=== PATIENT | male | born 1990 | race Caucasian/White ===

== ENCOUNTER 2020-01-09 12:18 | Emergency (ER) | payer OTHER, SELFPAY ==
[2020-01-09 12:27] VITALS: BP 152/84; PULSE 88; RESP 16; TEMP 36.7; O2SAT 98
--- NOTE | 2020-01-09 12:34 | DI.RAD.S_ITS ---
PROCEDURE: XR RIBS LT MIN 3V W CXR1V INDICATIONS: R floating rib pain TECHNIQUE: 3 views of the left ribs were acquired, along with a single view chest. COMPARISON: None. FINDINGS: Surgical changes and devices: None. Bones and chest wall: A marker is placed upon the area of clinical concern. Within this region, no displaced rib fracture or other significant rib abnormality can be seen. No rib fractures are seen elsewhere. No suspicious bony lesions. Overlying soft tissues appear unremarkable. Lungs and pleura: No pleural effusions or pneumothorax. Lungs appear clear. Mediastinum: Mediastinal contours appear normal. Heart size is normal. IMPRESSION: Negative study, without a focal rib abnormality seen. Dictated by: Dheeraj Rossi M.D. on 01/09/2020 at 12:02 Approved by: Dheeraj Rossi M.D. on 01/09/2020 at 12:04
--- NOTE | 2020-01-09 12:36 | ED.BACK ---
HPI - Back Pain/Injury <KRISTEN Joshua - Last Filed: 01/09/20 13:46> General Chief Complaint: Back Pain/Injury Stated Complaint: severe left kidney pain today Time Seen by Provider: 01/09/20 12:21 Source: patient History of Present Illness HPI Narrative: 29yo male healthy male presents emergency department complaining of left mid back pain for the past few days. He states he usually has chronic low back pain during activity, however he noticed mid back pain that started few days ago. He states he was trimming hedges and contributed the pain to that as it was bilaterally initially. However, today he went for walk and noticed increasing pain particularly on the left side. He states it feels like ?my ribs broken ?. He states the pain is a dull aching with intermittent sharp stabbing pain that ranges from a 4/10-8/10. Pain is worse with movement and palpation of that area. He denies any fevers, shortness of breath, chills, nausea, vomiting, diarrhea, dysuria, abdominal pain, or any other concerns. He denies any history of kidney stones, denies flank pain. Patient denies any trauma to the area. Patient reported he did take Tylenol this morning. Related Data Previous Rx's Medication Instructions Recorded ondansetron [Zofran ODT] 4 mg SUBLINGUAL Q6HP PRN #5 odt 11/13/16 pantoprazole 40 mg PO QDAY #30 tab 11/13/16 cyclobenzaprine 10 mg PO TID PRN #20 tab 01/09/20 Allergies Allergy/AdvReac Type Severity Reaction Status Date / Time cat dander [CAT DANDER] Allergy Intermediate Itchy, Unverified 01/08/18 12:53 watery eyes and sneezing Review of Systems <KRISTEN Joshua - Last Filed: 01/09/20 13:46> Review of Systems Narrative: REVIEW OF SYSTEMS: GENERAL: Denies fever or chills. HENT: No head trauma. EYES: No vision changes. CARDIOVASCULAR: No chest pain or syncope. RESPIRATORY: No shortness of breath or cough. GASTROINTESTINAL: No nausea, vomiting, diarrhea, or constipation. GENITOURINARY: No flank pain. MUSCULOSKELETAL: Complains of left lower rib/back pain, see HPI. INTEGUMENTARY: No rash, lesions, or pruritus. NEURO: No numbness, tingling. Patient History <KRISTEN Joshua - Last Filed: 01/09/20 13:46> Medical History No significant medical problems (Acute) Social History Smoking Status: Never smoker Smoking Status: Never smoker alcohol intake frequency: a few times a month Substance Use Type: marijuana Exam <KRISTEN Joshua - Last Filed: 01/09/20 13:46> Initial Vital Signs Initial Vital Signs: Vital Signs Temperature 98.0 F 01/09/20 12:27 Pulse Rate 88 01/09/20 12:27 Respiratory Rate 16 01/09/20 12:27 Blood Pressure 152/84 H 01/09/20 12:27 Pulse Oximetry 98 01/09/20 12:27 PHYSICAL EXAMINATION: GENERAL: Well groomed, alert, and cooperative. Answers questions promptly and appropriately. Vital signs noted. HENT: Normocephalic, atraumatic. EYES: Symmetrical, sclera white, no periorbital swelling. CARDIOVASCULAR: S1 and S2 sounds normal. Regular rate and rhythm, no murmurs, clicks, or bruits. No pedal edema. RESPIRATORY: Normal respiratory rate, trachea midline, airway patent. No stridor, nasal flaring or accessory muscle use. Lungs are clear in all beltran. MUSCULOSKELETAL: Tenderness to left lower floating ribs with palpation of the anterior aspect. Increased pain with twisting from waist, and from lying to sitting. No spinal tenderness, no posterior rib tenderness. Normal gait and coordination. Equal tone and mass bilaterally. No ecchymosis, rash, or bruising. Equal metal fabrication supervisor strength bilaterally. ABD: Abdomen soft and nontender, no masses. : No CVA tenderness. EXTREMITIES: CMS intact. SKIN: Warm, dry, soft, appropriate color for ethnicity. No lesions, rashes, or wounds to visible area NEURO: Alert and Oriented X 3. No sensory deficits. PSYCH: Appropriate affect and mood. <Leelee Rodríguez MD - Last Filed: 01/09/20 14:14> Initial Vital Signs Initial Vital Signs: Vital Signs Temperature 98.0 F 01/09/20 12:27 Pulse Rate 88 01/09/20 12:27 Respiratory Rate 16 01/09/20 12:27 Blood Pressure 152/84 H 01/09/20 12:27 Pulse Oximetry 98 01/09/20 12:27 Course <KRISTEN Joshua - Last Filed: 01/09/20 13:46> Course Course Narrative: Patient was given Toradol in the emergency department to help with pain, this slightly improved pain. Orders Ordered: ED Orders 01/09/20 12:34 XR ribs LT min 3V w CXR1V Stat Discontinued Medications Ketorolac Tromethamine (Toradol) 30 mg IM NOW ONE Stop: 01/09/20 12:35 Last Admin: 01/09/20 12:38 Dose: 30 mg Documented by: PRIMITIVO Vital Signs Vital signs: Vital Signs - 8 hr 01/09/20 12:27 Temperature 98.0 F Pulse Rate 88 Respiratory Rate 16 Blood Pressure 152/84 H Pulse Oximetry 98 <Leelee Rodríguez MD - Last Filed: 01/09/20 14:14> Orders Ordered: ED Orders 01/09/20 12:34 XR ribs LT min 3V w CXR1V Stat Discontinued Medications Ketorolac Tromethamine (Toradol) 30 mg IM NOW ONE Stop: 01/09/20 12:35 Last Admin: 01/09/20 12:38 Dose: 30 mg Documented by: PRIMITIVO Vital Signs Vital signs: Vital Signs - 8 hr 01/09/20 12:27 Temperature 98.0 F Pulse Rate 88 Respiratory Rate 16 Blood Pressure 152/84 H Pulse Oximetry 98 MDM - Back Pain/Injury <KRISTEN Joshua - Last Filed: 01/09/20 13:46> Medical Records Attestation: I reviewed the patient's medical records. Lab Data Attestation: I reviewed the patient's lab results. Labs: Urine Dip Bedside Urine Glucose Negative Bedside Urine Bilirubin - Negative Bedside Urine Ketone - Negative Urine Specific [place] 1.025 Bedside Urine Occult Blood - Negative Bedside Urine pH 6.0 Bedside Urine Protein +/- 15 Bedside Urine Urobilinogen - Negative Bedside Urine Nitrite - Negative Bedside Urine Leukocytes - Negative Esterase Imaging Data Chest x-ray: Radiologist's Impression: [address] [address] XRay Report Signed Patient: Yehuda Chau FMR#: [id number] : 1990Acct:[id number] Age/Sex: 29 / MDate of Service: 01/09/20 Loc: ED Accession Number: [id number] Procedure: XR ribs LT min 3V w CXR1V Ordering Provider: Ariella Springer PROCEDURE: XR RIBS LT MIN 3V W CXR1V INDICATIONS: R floating rib pain TECHNIQUE: 3 views of the left ribs were acquired, along with a single view chest. COMPARISON: None. FINDINGS: Surgical changes and devices: None. Bones and chest wall: A marker is placed upon the area of clinical concern. Within this region, no displaced rib fracture or other significant rib abnormality can be seen. No rib fractures are seen elsewhere. No suspicious bony lesions. Overlying soft tissues appear unremarkable. Lungs and pleura: No pleural effusions or pneumothorax. Lungs appear clear. Mediastinum: Mediastinal contours appear normal. Heart size is normal. IMPRESSION: Negative study, without a focal rib abnormality seen. Dictated by: Dheeraj Rossi M.D. on 01/09/2020 at 12:02 Approved by: Dheeraj Rossi M.D. on 01/09/2020 at 12:04 [facility] Narrative Medical decision making narrative: A healthy 29-year-old male presents emergency department complaining of left-sided thoracic back pain after using the hedge trimmers, pain is worse with palpation and movement. Suspect patient's pain is most likely caused by a muscle spasm versus muscle strain due to reports of recent increase in activity such as head trimming, worsening pain with palpation and movement, no abdominal or flank tenderness, and negative x-ray. Less likely fracture due to negative x-ray and lack of trauma. Less likely renal calculi due to lack of CVA tenderness, urine without leukocytes or blood. Less likely infectious etiology due to lack of systemic symptoms such as fever, tachycardia, diarrhea, or vomiting. Less likely pancreatitis due to lack of abdominal pain or other symptoms such as nausea or vomiting. Patient was prescribed a muscle relaxer, he was encouraged to take ibuprofen for pain inflammation. He was given very strict return precautions for new or worsening symptoms. Patient agrees to plan of care verbalized his understanding. <Leelee Rodríguez MD - Last Filed: 01/09/20 14:14> Lab Data Labs: Urine Dip Bedside Urine Glucose Negative Bedside Urine Bilirubin - Negative Bedside Urine Ketone - Negative Urine Specific [place] 1.025 Bedside Urine Occult Blood - Negative Bedside Urine pH 6.0 Bedside Urine Protein +/- 15 Bedside Urine Urobilinogen - Negative Bedside Urine Nitrite - Negative Bedside Urine Leukocytes - Negative Esterase Discharge Plan Departure Patient Disposition: Home Clinical Impression: Rib pain Back pain, thoracic Qualifiers: Chronicity: acute Back pain laterality: left Qualified Code(s): M54.6 - Pain in thoracic spine Discharge Date/Time: 01/09/20 13:39 Instructions: DI for Back Spasm Activity Restrictions/Additional Instructions: Thank you for entrusting me with your care today. As discussed, your x-ray is negative for any fractures. It appears that your pain is most likely caused by a muscle strain and surrounding inflammation. I recommend taking 400-600 mg of ibuprofen every 6 hours for the next 3 days, this will help decrease inflammation. Additionally, I prescribed you a muscle relaxer. This will make you sleepy, do not drive while taking this medication. Please perform gentle stretches and massages, you may use ice and heat to help with pain. Follow up with your primary care provider in the next week if symptoms continue. Return to the emergency department for any new or worsening symptoms such as significant worsening of pain and, uncontrollable vomiting, high fevers, abdominal pain, chest pain, shortness of breath, or any other concerns. Prescriptions: New cyclobenzaprine 10 mg tablet 10 mg PO TID PRN (Reason: muscle spasm) Qty: 20 RF: 0 No Action pantoprazole 40 MG tablet,delayed release (DR/EC) 40 mg PO QDAY Qty: 30 RF: 0 ondansetron [Zofran ODT] 4 MG tablet,disintegrating 4 mg Sublingual Q6HP PRNQty: 5 RF: 0 <Leelee Rodríguez MD - Last Filed: 01/09/20 14:14> Cosign ED Attending Cosignature Attestation: I was immediately available in the department for consultation throughout this patient's visit. I agree with documentation as above. Leelee Rodríguez MD
[2020-01-09] MEDS: KETOROLAC 60 MG/2 ML VIAL 30 MG IM (12:38)
== END 2020-01-09 13:39 | disposition home or self-care (01) ==
PROVIDERS: Emergency Provider Nurse Practitioner
DX: M54.6 Pain in thoracic spine (principal); R07.81 Pleurodynia
CPT/HCPCS: 71101; 81003; 96372; 99283; J1885

== ENCOUNTER 2025-04-20 05:31 | Emergency (ER) | payer OTHER, SELFPAY ==
[2025-04-20] VITALS (13 sets, daily range): BP systolic 150–178; BP diastolic 96–107; PULSE 68–96; RESP 10–27; TEMP 36.1; O2SAT 94–100; BMI 29.0
--- NOTE | 2025-04-20 05:33 | DI.CT.S_ITS ---
PROCEDURE: CT ABDOMEN PELVIS W CON INDICATIONS: abd /n/v hx pancreatitis TECHNIQUE: After the administration of intravenous contrast, axial sections acquired from the lung bases to the pubic symphysis. Coronal and sagittal reformats were performed. For radiation dose reduction, the following was used: automated exposure control, adjustment of mA and/or kV according to patient size. COMPARISON: [facility], CT, ABDOMEN/PELVIS WITH CONTRAST, 11/13/2016, 5:15. FINDINGS: Image quality: Diagnostic. Lower Chest: No significant findings. ABDOMEN: Liver: No solid mass. Gallbladder: No radiopaque gallstones or wall thickening. Biliary ducts: No biliary dilation. Pancreas: No ductal dilation. Spleen: Size is within normal limits. Adrenal Glands: No adrenal nodules. Kidneys and Ureters: No hydronephrosis. No solid mass. No complex renal cystic lesion which requires follow up. Stomach and Bowel: Normal colonic caliber, without significant wall thickening. The appendix is visualized and normal. Peritoneum: No abnormal intraperitoneal fluid. No free air. Ventral Wall: No significant ventral hernia. Abdominal Nodes: No retroperitoneal or mesenteric adenopathy by size criteria. Vessels: Aorta and inferior vena cava are normal in size. PELVIS: Pelvic Organs: Unremarkable. Bladder: No bladder wall thickening, accounting for underdistention. Pelvic Nodes: No enlarged lymph nodes. Miscellaneous: No inguinal hernias are seen. Bones: No aggressive osseous abnormality. IMPRESSION: No significant or acute findings of the abdomen or pelvis. Specifically, there is no evidence of acute pancreatitis. Dictated by: Callie Webb M.D. on 04/20/2025 at 8:28 Approved by: Callie Webb M.D. on 04/20/2025 at 8:31
--- NOTE | 2025-04-20 05:34 | ED.ABDPAIN ---
HPI - Abdominal Pain <Abad Watson, - Last Filed: 04/20/25 07:06> General Chief Complaint: Abdominal Pain Stated Complaint: pancreatitis, in hospital last week, pain Time Seen by Provider: 04/20/25 05:32 History of Present Illness HPI narrative: Patient is a 34-year-old male with a past medical history of alcoholic induced pancreatitis, comes into the ED from home for evaluation of nausea and vomiting abdominal pain, states that he was recently in the hospital last week for pancreatitis, states that he was in [place] when this happened, states that he was told that he had an intussusception that did not require any intervention and was discharged home with a referral to GI. States that he has not reached out/set an appointment with GI yet, states that her symptoms are the same as when he was in the hospital states that symptoms started proximally 4 hours ago, states that he did try taking some Zofran at home but did not help his symptoms therefore decided come into the ED for further evaluation treatment. States that he did have 1 beer last night otherwise denies any other recreational drugs. Denies any other symptoms such as headache visual disturbance chest pain shortness breath fever chills or any other GI/ symptoms time. Related Data Previous Rx's ?Medication ?Instructions ?Recorded ondansetron 4 mg disintegrating 4 mg sublingual Q6HP PRN ##5 11/13/16 tablet (Zofran ODT) pantoprazole 40 mg tablet,delayed 40 mg PO QDAY #30 tabs 11/13/16 release cyclobenzaprine 10 mg tablet 10 mg PO TID PRN muscle spasm #20 01/09/20 tabs Allergies Allergy/AdvReac Type Severity Reaction Status Date / Time cat dander (CAT DANDER) Allergy Intermediate Itchy, Unverified 04/20/25 05:59 watery eyes and sneezing Review of Systems <Abad Watson, - Last Filed: 04/20/25 07:06> Review of Systems Narrative: General: Denies fever, chills, weight loss HEENT: Denies headache, eye drainage, eye irritation, head trauma, sore throat, voice change Cardiovascular: Denies any chest pain, palpitations, tachycardia Respiratory: Denies any shortness of breath, cough, wheeze, stridor GI/: Positive abdominal pain, nausea, vomiting, diarrhea, denies bright red blood per rectum, melanotic stools, urinary frequency, urinary retention, dysuria, hematuria MSK: Denies any joint pain, muscle pains, swelling Skin: Denies any rashes, lesions, discoloration Neuro: Denies any headache, lightheadedness, dizziness, fainting, weakness Psych: Denies SI/HI Patient History <Abad Watson DO - Last Filed: 04/20/25 07:06> Medical History (Updated 04/20/25 @ 10:09 by Sacha Webber MD) No significant medical problems Social History Smoking Status: Never smoker alcohol intake frequency: a few times a month Exam <Abad Watson DO - Last Filed: 04/20/25 07:06> Narrative Exam Narrative: General: Cooperative, well-developed, not in acute distress HEENT: Normocephalic, atraumatic, PERRLA, normal sclera, eyelids normal Neck: Active full range of motion, atraumatic Chest: Normal to inspection, negative crepitus, no overlying erythema ecchymosis Respiratory: Normal respiratory effort, not in acute respiratory distress, clear to auscultation bilaterally negative cough, wheeze, tachypnea, rhonchi, rales Cardiology: Regular rate rhythm negative gallop, murmur, rubs GI/: Patient has dry heaving on exam. No tenderness to palpation, soft, non rigid, normal to inspection, exam deferred MSK: Full active range of motion in all 4 extremities, atraumatic, no tenderness to palpation of any bony prominences Skin: No rashes or lesions noted Neuro: Alert awake oriented x3, moves all 4 extremities spontaneously, cranial nerves intact, able to answer all questions appropriately follows commands appropriately Psych: Cooperative, negative suicidal or homicidal ideations Initial Vital Signs Initial Vital Signs: Vital Signs Temperature 97 F L 04/20/25 05:49 Pulse Rate 82 04/20/25 05:49 Respiratory Rate 18 04/20/25 05:49 Blood Pressure 178/107 H 04/20/25 05:49 Pulse Oximetry 98 04/20/25 05:49 Oxygen Delivery Method Room Air 04/20/25 05:49 <Sacha Webber MD - Last Filed: 04/20/25 19:01> Initial Vital Signs Initial Vital Signs: Vital Signs Temperature 97 F L 04/20/25 05:49 Pulse Rate 82 04/20/25 05:49 Respiratory Rate 18 04/20/25 05:49 Blood Pressure 178/107 H 04/20/25 05:49 Pulse Oximetry 98 04/20/25 05:49 Oxygen Delivery Method Room Air 04/20/25 05:49 Course <Abad Watson DO - Last Filed: 04/20/25 07:06> Orders Ordered: Discontinued Medications Haloperidol (Haloperidol 5 Mg/Ml Vial) 5 mg IV NOW ONE Stop: 04/20/25 06:20 Last Admin: 04/20/25 06:22 Dose: 5 mg Documented By: WILLARD Hydromorphone HCl (Hydromorphone 1 Mg Inj) 1 mg IV NOW ONE Stop: 04/20/25 05:46 Last Admin: 04/20/25 05:50 Dose: 1 mg Documented By: WILLARD Sodium Chloride (Normal Saline 0.9%) 1,000 mls @ 1,000 mls/hr IV BOLUS ONE Stop: 04/20/25 06:31 Last Infusion: 04/20/25 06:42 Dose: Infused Documented By: Admin: 04/20/25 05:50 Dose: 1,000 mls/hr Documented By: WILLARD Morphine Sulfate (Morphine 4 Mg/Ml Inj) 4 mg IV NOW ONE Stop: 04/20/25 05:33 Last Admin: 04/20/25 05:58 Dose: Not Given Documented By: KIKE Ondansetron HCl (Ondansetron 4 Mg/2 Ml Inj) 4 mg IV NOW ONE Stop: 04/20/25 05:33 Last Admin: 04/20/25 05:50 Dose: 4 mg Documented By: WILLARD Vital Signs Vital signs: Vital Signs - 8 hr 04/20/25 05:49 04/20/25 05:58 04/20/25 06:00 Temperature 97 F L Pulse Rate 82 73 68 Respiratory Rate 18 10 L Blood Pressure 178/107 H Pulse Oximetry 98 96 98 Oxygen Delivery Method Room Air 04/20/25 06:00 04/20/25 06:30 04/20/25 07:00 Temperature Pulse Rate 75 68 Respiratory Rate 12 12 Blood Pressure 161/107 H Pulse Oximetry 100 Oxygen Delivery Method 04/20/25 07:02 04/20/25 07:02 04/20/25 07:30 Temperature Pulse Rate 69 72 Respiratory Rate 17 17 Blood Pressure 161/100 H Pulse Oximetry 94 99 Oxygen Delivery Method 04/20/25 07:30 04/20/25 08:00 04/20/25 08:00 Temperature Pulse Rate 77 Respiratory Rate 16 Blood Pressure 150/107 H 168/101 H Pulse Oximetry 98 Oxygen Delivery Method 04/20/25 08:30 04/20/25 08:30 Temperature Pulse Rate 75 Respiratory Rate 19 Blood Pressure 162/100 H Pulse Oximetry 98 Oxygen Delivery Method <Sacha Webber MD - Last Filed: 04/20/25 19:01> Orders Ordered: Discontinued Medications Haloperidol (Haloperidol 5 Mg/Ml Vial) 5 mg IV NOW ONE Stop: 04/20/25 06:20 Last Admin: 04/20/25 06:22 Dose: 5 mg Documented By: WILLARD Hydromorphone HCl (Hydromorphone 1 Mg Inj) 1 mg IV NOW ONE Stop: 04/20/25 05:46 Last Admin: 04/20/25 05:50 Dose: 1 mg Documented By: WILLARD Sodium Chloride (Normal Saline 0.9%) 1,000 mls @ 1,000 mls/hr IV BOLUS ONE Stop: 04/20/25 06:31 Last Infusion: 04/20/25 06:42 Dose: Infused Documented By: Admin: 04/20/25 05:50 Dose: 1,000 mls/hr Documented By: WILLARD Morphine Sulfate (Morphine 4 Mg/Ml Inj) 4 mg IV NOW ONE Stop: 04/20/25 05:33 Last Admin: 04/20/25 05:58 Dose: Not Given Documented By: KIKE Ondansetron HCl (Ondansetron 4 Mg/2 Ml Inj) 4 mg IV NOW ONE Stop: 04/20/25 05:33 Last Admin: 04/20/25 05:50 Dose: 4 mg Documented By: WILLARD Vital Signs Vital signs: Vital Signs - 8 hr 04/20/25 05:49 04/20/25 05:58 04/20/25 06:00 Temperature 97 F L Pulse Rate 82 73 68 Respiratory Rate 18 10 L Blood Pressure 178/107 H Pulse Oximetry 98 96 98 Oxygen Delivery Method Room Air 04/20/25 06:00 04/20/25 06:30 04/20/25 07:00 Temperature Pulse Rate 75 68 Respiratory Rate 12 12 Blood Pressure 161/107 H Pulse Oximetry 100 Oxygen Delivery Method 04/20/25 07:02 04/20/25 07:02 04/20/25 07:30 Temperature Pulse Rate 69 72 Respiratory Rate 17 17 Blood Pressure 161/100 H Pulse Oximetry 94 99 Oxygen Delivery Method 04/20/25 07:30 04/20/25 08:00 04/20/25 08:00 Temperature Pulse Rate 77 Respiratory Rate 16 Blood Pressure 150/107 H 168/101 H Pulse Oximetry 98 Oxygen Delivery Method 04/20/25 08:30 04/20/25 08:30 Temperature Pulse Rate 75 Respiratory Rate 19 Blood Pressure 162/100 H Pulse Oximetry 98 Oxygen Delivery Method MDM - Abdominal Pain <Abad Watson DO - Last Filed: 04/20/25 07:06> Differential Diagnosis Differential diagnosis: Likely abdominal pain, acute appendicitis, constipation, diverticulitis, gastroenteritis, pancreatitis, small bowel obstruction and other (Urinary tract infection, electrolyte abnormality,) Lab Data 04/20/25 05:45 04/20/25 05:45 Labs: Lab Results 04/20/25 04/20/25 04/20/25 Range/Units 05:45 08:49 08:49 WBC 12.1 H (4.5-11.0) X10^3/uL RBC 5.18 (4.5-5.9) X10^6/uL Hgb 15.6 (13.5-17.5) g/dL Hct 44.8 (41-53) % MCV 86.5 (80-100) fL MCH 30.2 (26-34) PG MCHC 34.9 (30-36) % RDW 14.0 (11.6-14.8) % Plt Count 279 (150-400) X10^3/uL Neut % (Auto) 67.0 (50-75) % Lymph % (Auto) 23.3 L (25-40) % [place] % (Auto) 8.8 (3-14) % Eos % (Auto) 0.5 L (2-4) % Baso % (Auto) 0.4 (0-2) % Neut # (Auto) 8100 H (6952-7116) /uL Lymph # (Auto) 2800 (6098-4987) /uL [place] # (Auto) 1100 H (0-900) /uL Eos # (Auto) 100 (0-450) /uL Baso # (Auto) 0 (0-100) /uL Sodium 137 (137-145) mmol/L Potassium 4.3 (3.4-5.1) mmol/L Chloride 103 (98-107) mmol/L Carbon Dioxide 25 (22-32) mmol/L BUN 24 H (9-20) mg/dL Creatinine 1.07 (0.66-1.25) mg/dL Estimated GFR > 60 (>60) mL/min BUN/Creatinine Ratio 22.4 H (6-22) Glucose 100 H (70-99) mg/dL Lactate 1.2 (0.7-2.1) mmol/L Calcium 9.8 (8.4-10.2) mg/dL Magnesium 2.2 (1.6-2.3) mg/dL Total Bilirubin 0.6 (0.2-1.3) mg/dL AST 40 (17-59) IU/L ALT 32 (<50) IU/L Alkaline Phosphatase 77 (38-126) U/L Total Protein 7.9 (6.3-8.2) g/dL Albumin 5.0 (3.5-5.0) g/dL Globulin 2.9 (1.7-4.1) g/dL Albumin/Globulin Ratio 1.7 (1.0-2.8) Lipase 339 H (23-300) U/L Urine Color Yellow Urine Appearance Clear Urine pH 5.5 Normal (4.5-8.0) Ur Specific [place] 1.015 (1.000-1.035) Urine Protein Negative (Negative) Urine Glucose (UA) Negative (Negative) g/dL Urine Ketones 1+ H (NEGATIVE) Urine Occult Blood Negative (Negative) Urine Nitrate Negative (Negative) Urine Bilirubin Negative (NEGATIVE) Urine Urobilinogen 0.2 (0.2) E.U./dL Ur Leukocyte Esterase Negative (NEGATIVE) Urine RBC None seen (0-5/HPF) Urine WBC 0-1/hpf (0-5/HPF) Ur Squamous Epith Cells 0-1 /hpf (0-5/HPF) Urine Bacteria None seen (None) Ur Culture Indicated? Cult not indicated Vol Urine Centrifuged 10ml (spun) U Opiates 300ng/mL cut Negative (Negative) Ur Oxycodone Screen Negative (Negative) Urine Methadone Screen Negative (Negative) Ur Barbiturates Screen Negative (Negative) U Tricyclic Antidepress Negative (Negative) Ur Phencyclidine Scrn Negative (Negative) Ur Amphetamines Screen Negative (Negative) U Methamphetamines Scrn Negative (Negative) Ur MDMA Scrn (Ecstasy) Negative (Negative) U Benzodiazepines Scrn Negative (Negative) Urine Cocaine Screen Negative (Negative) U Marijuana (THC) Screen Positive H (Negative) Urine Specific [place] Normal (Normal) Ethyl Alcohol < 10 (<10) mg/dL Ur Creatinine Normal (Normal) Point of care testing: Urine Dip Bedside Urine Glucose Negative Bedside Urine Bilirubin - Negative Bedside Urine Ketone ++ 40 Urine Specific [place] 1.010 Bedside Urine Occult Blood - Negative Bedside Urine pH 6.0 Bedside Urine Protein - Negative Bedside Urine Urobilinogen - Negative Bedside Urine Nitrite - Negative Bedside Urine Leukocytes - Negative Esterase ECG Data Interpretation: EKG interpreted ED physician sinus 66 beats per minute QTC 429, QRS ME interval within normal limits, no STEMI MDM Narrative Medical decision making narrative: Patient is a 34-year-old male history of pancreatitis comes into the ED from home for evaluation of abdominal pain nausea and vomiting. He states that he was at a hospital in the [place] about a week ago states that he was told he had intussusception but did not require intervention and was discharged home with GI out patient follow up. States that he has similar symptoms now states it started 4 hours prior to arrival but states that he is not having any other symptoms such as headache visual disturbances chest pain shortness breath fever chills or any other GI/ symptoms time. States that he has not set up a GI follow up yet. States that he tried a Zofran earlier this morning without any relief therefore decided come into the ED for further evaluation treatment. Does admit to drinking 1 beer last night. Otherwise denies any recreational drugs. Patient lab work with a slight leukocytosis of 12.1, Chem panel without any acute electrolyte abnormality, lipase 339, 0700: Patient was signed out to Dr. Webber, final disposition pending CT scan urinalysis and re-evaluation <Sacha Webber MD - Last Filed: 04/20/25 19:01> Lab Data Labs: Lab Results 04/20/25 04/20/25 04/20/25 Range/Units 05:45 08:49 08:49 WBC 12.1 H (4.5-11.0) X10^3/uL RBC 5.18 (4.5-5.9) X10^6/uL Hgb 15.6 (13.5-17.5) g/dL Hct 44.8 (41-53) % MCV 86.5 (80-100) fL MCH 30.2 (26-34) PG MCHC 34.9 (30-36) % RDW 14.0 (11.6-14.8) % Plt Count 279 (150-400) X10^3/uL Neut % (Auto) 67.0 (50-75) % Lymph % (Auto) 23.3 L (25-40) % [place] % (Auto) 8.8 (3-14) % Eos % (Auto) 0.5 L (2-4) % Baso % (Auto) 0.4 (0-2) % Neut # (Auto) 8100 H (5261-7758) /uL Lymph # (Auto) 2800 (6005-7113) /uL [place] # (Auto) 1100 H (0-900) /uL Eos # (Auto) 100 (0-450) /uL Baso # (Auto) 0 (0-100) /uL Sodium 137 (137-145) mmol/L Potassium 4.3 (3.4-5.1) mmol/L Chloride 103 (98-107) mmol/L Carbon Dioxide 25 (22-32) mmol/L BUN 24 H (9-20) mg/dL Creatinine 1.07 (0.66-1.25) mg/dL Estimated GFR > 60 (>60) mL/min BUN/Creatinine Ratio 22.4 H (6-22) Glucose 100 H (70-99) mg/dL Lactate 1.2 (0.7-2.1) mmol/L Calcium 9.8 (8.4-10.2) mg/dL Magnesium 2.2 (1.6-2.3) mg/dL Total Bilirubin 0.6 (0.2-1.3) mg/dL AST 40 (17-59) IU/L ALT 32 (<50) IU/L Alkaline Phosphatase 77 (38-126) U/L Total Protein 7.9 (6.3-8.2) g/dL Albumin 5.0 (3.5-5.0) g/dL Globulin 2.9 (1.7-4.1) g/dL Albumin/Globulin Ratio 1.7 (1.0-2.8) Lipase 339 H (23-300) U/L Urine Color Yellow Urine Appearance Clear Urine pH 5.5 Normal (4.5-8.0) Ur Specific [place] 1.015 (1.000-1.035) Urine Protein Negative (Negative) Urine Glucose (UA) Negative (Negative) g/dL Urine Ketones 1+ H (NEGATIVE) Urine Occult Blood Negative (Negative) Urine Nitrate Negative (Negative) Urine Bilirubin Negative (NEGATIVE) Urine Urobilinogen 0.2 (0.2) E.U./dL Ur Leukocyte Esterase Negative (NEGATIVE) Urine RBC None seen (0-5/HPF) Urine WBC 0-1/hpf (0-5/HPF) Ur Squamous Epith Cells 0-1 /hpf (0-5/HPF) Urine Bacteria None seen (None) Ur Culture Indicated? Cult not indicated Vol Urine Centrifuged 10ml (spun) U Opiates 300ng/mL cut Negative (Negative) Ur Oxycodone Screen Negative (Negative) Urine Methadone Screen Negative (Negative) Ur Barbiturates Screen Negative (Negative) U Tricyclic Antidepress Negative (Negative) Ur Phencyclidine Scrn Negative (Negative) Ur Amphetamines Screen Negative (Negative) U Methamphetamines Scrn Negative (Negative) Ur MDMA Scrn (Ecstasy) Negative (Negative) U Benzodiazepines Scrn Negative (Negative) Urine Cocaine Screen Negative (Negative) U Marijuana (THC) Screen Positive H (Negative) Urine Specific [place] Normal (Normal) Ethyl Alcohol < 10 (<10) mg/dL Ur Creatinine Normal (Normal) Point of care testing: Urine Dip Bedside Urine Glucose Negative Bedside Urine Bilirubin - Negative Bedside Urine Ketone ++ 40 Urine Specific [place] 1.010 Bedside Urine Occult Blood - Negative Bedside Urine pH 6.0 Bedside Urine Protein - Negative Bedside Urine Urobilinogen - Negative Bedside Urine Nitrite - Negative Bedside Urine Leukocytes - Negative Esterase Imaging Data CT scan - abdomen/pelvis: Radiologist's Impression: IMPRESSION: No significant or acute findings of the abdomen or pelvis. Specifically, there is no evidence of acute pancreatitis. MDM Narrative Medical decision making narrative: Patient is a 34-year-old male history of pancreatitis comes into the ED from home for evaluation of abdominal pain nausea and vomiting. He states that he was at a hospital in the [place] about a week ago states that he was told he had intussusception but did not require intervention and was discharged home with GI out patient follow up. States that he has similar symptoms now states it started 4 hours prior to arrival but states that he is not having any other symptoms such as headache visual disturbances chest pain shortness breath fever chills or any other GI/ symptoms time. States that he has not set up a GI follow up yet. States that he tried a Zofran earlier this morning without any relief therefore decided come into the ED for further evaluation treatment. Does admit to drinking 1 beer last night. Otherwise denies any recreational drugs. Patient lab work with a slight leukocytosis of 12.1, Chem panel without any acute electrolyte abnormality, lipase 339, 0700: Patient was signed out to Dr. Webber, final disposition pending CT scan urinalysis and re-evaluation Patient care was signed out to me by Dr. Watson with urinalysis and CT scan report pending. This is a CT of the abdomen and pelvis. Patient's CT scan of the abdomen pelvis is unremarkable. No evidence of pancreatitis. Urinalysis unremarkable. Only finding is slightly elevated lipase. Patient is now asymptomatic. Discharged home with a diagnosis of abdominal pain with possible mild pancreatitis. Advised to follow a bland diet and no alcohol. Follow up with primary care. Return to the ER if worse Discharge Plan Departure Patient Disposition: Home Clinical Impression: Acute upper abdominal pain Instructions: DI for Pancreatitis, DI for Abdominal Pain-Adult Activity Restrictions/Additional Instructions: Assessment: Upper abdominal pain with negative CT scan. Slight rise and lipase indicating possible mild pancreatitis. Plan: [place] diet and no alcohol. Monitor symptoms. Establish primary care and follow-up within the next 1-2 weeks. Return to the ER if worse. Prescriptions: No Action pantoprazole 40 MG tablet,delayed release (DR/EC) 40 mg PO QDAY Qty: 30 0RF ondansetron [Zofran ODT] 4 MG tablet,disintegrating 4 mg Sublingual Q6HP PRNQty: 5 0RF cyclobenzaprine 10 mg tablet 10 mg PO TID PRN (Reason: muscle spasm) Qty: 20 0RF Stand Alone Forms: Patient Portal/API
--- NOTE | 2025-04-20 05:42 | EKG_ITS ---
[address] [address] Test Date: 2025-04-20 Pat Name: Yehuda Chau Department: [facility] Room: Gender: Male [employer]: DAXA : [id number] Requested By: Order Number: [id number] Reading MD: Getachew Ruiz Measurements Intervals [place] Rate: 66 P: 66 ND: 166 QRS: 34 QRSD: 98 T: 51 QT: 410 QTc: 429 Interpretive Statements Normal sinus rhythm Electronically Signed On 04-20-2025 10:20:35 PDT by Getachew Ruiz
[2025-04-20] MEDS: ONDANSETRON 4 MG/2 ML INJ IV (05:50)
[2025-04-20] MEDS: HYDROMORPHONE 1 MG INJ IV (05:50)
[2025-04-20] MEDS: SODIUM CHLORIDE 0.9% 1,000 ML 1000 ML IV (05:50)
[2025-04-20 05:52] LABS: Add Manual Diff / Slide Review NO; Hematocrit 44.8 % (41-53); Hemoglobin 15.6 g/dL (13.5-17.5); Lymphocytes Absolute Auto 2800 /uL (1100-4500); Mean Corpuscular HGB Conc 34.9 % (30-36); Mean Corpuscular Hemoglobin 30.2 PG (26-34); Mean Corpuscular Volume 86.5 fL (80-100); Platelet Count 279 X10^3/uL (150-400)
[2025-04-20 06:04] LABS: Alanine Aminotransferase 32 IU/L (<50); Albumin 5.0 g/dL (3.5-5.0); Albumin Globulin Ratio 1.7 (1.0-2.8); Alkaline Phosphatase 77 U/L (38-126); Blood Urea Nitrogen 24 mg/dL (9-20); Calcium 9.8 mg/dL (8.4-10.2); Carbon Dioxide 25 mmol/L (22-32); Chloride 103 mmol/L (98-107); Estimated Glomerular Filt Rate > 60 mL/min (>60); Ethanol (ETOH) < 10 mg/dL (<10); Globulin 2.9 g/dL (1.7-4.1); Glucose 100 mg/dL (70-99); HEMOLYSIS < 15 (0-50); Lactate (Lactic Acid) 1.2 mmol/L (0.7-2.1); Lipase 339 U/L (23-300); Magnesium 2.2 mg/dL (1.6-2.3); Potassium 4.3 mmol/L (3.4-5.1); Sodium 137 mmol/L (137-145); Total Protein 7.9 g/dL (6.3-8.2)
[2025-04-20] MEDS: HALOPERIDOL 5 MG/ML VIAL IV (06:22)
--- NOTE | 2025-04-20 07:35 | PC.NURSE ---
Pt resting on stretcher, A&Ox4, RA, NAD, breathing even/equal/unlabored at this time. Call light within reach, no needs at this time
[2025-04-20 09:02] LABS: Appearance Urine UA CLEAR; Bilirubin Urine UA NEGATIVE (NEGATIVE); Color Urine UA YELLOW; Glucose Urine UA NEGATIVE (Negative); Ketones Urine UA 1+ (NEGATIVE); Leukocyte Esterase Urine UA NEGATIVE (NEGATIVE); Nitrite Urine UA NEGATIVE (Negative); Occult Blood Urine UA NEGATIVE (Negative); Protein Urine UA NEGATIVE (Negative); Specific Gravity Urine UA 1.015 (1.000-1.035); Urobilinogen Urine UA 0.2 E.U./dL (0.2); pH Urine UA 5.5 (4.5-8.0)
[2025-04-20 09:11] LABS: Culture Indicated Urine Cult Not Indicated; UR Morphine/Opiate cutoff 300 Negative (Negative); Ur Specific Gravity Normal (Normal); Urine MDMA Negative (Negative); Urine Methamphetamines Negative (Negative); Urine Tetrahydrocannabinol Positive (Negative); Urine Tricyclic Antidepressant Negative (Negative)
== END 2025-04-20 10:31 | disposition home or self-care (01) ==
PROVIDERS: Emergency Provider Student in an Organized Health Care Education/Training Program
DX: R10.10 Upper abdominal pain, unspecified (principal); R11.2 Nausea with vomiting, unspecified
CPT/HCPCS: 36415; 74177; 80053; 80305; 80320; 81001; 81003; 83605; 83690; 83735; 85025; 93005; 96361; 96374; 96375; 99284; J1171; J1630; J2405; Q9967

== ENCOUNTER 2025-04-22 06:22 | Emergency (ER) | payer OTHER, SELFPAY ==
--- NOTE | 2025-04-22 06:33 | ED_ITS ---
HPI - Abdominal Pain General Chief Complaint: Abdominal Pain Stated Complaint: Anxiety/poss panic attack Time Seen by Provider: 04/22/25 06:30 History of Present Illness HPI narrative: Patient is a 34-year-old male past medical history of alcohol-induced pancreatitis, comes into the ED from home for evaluation of palpitations, nausea and vomiting abdominal pain. States that he is having recurrent nausea and vomiting and some abdominal pain after waking up and noticing his heart was starting to race. He states that he felt like he was starting to ?panic and the pain, nausea and vomiting started to present itself again. At time of evaluation patient stating that he has anxious, starting to feel some abdominal pain nausea but no actual vomiting. He denies any symptoms such as headache visual disturbance chest pain shortness of breath fever chills or any other GI/ symptoms at this time. He states that he was able to see a primary care doctor yesterday and was started on some ?anxiety medication however he states he does not know the name of this. Patient was seen here on 04/20/2025 for the same symptoms. Related Data Previous Rx's ?Medication ?Instructions ?Recorded ondansetron 4 mg disintegrating 4 mg sublingual Q6HP P RN ##5 11/13/16 tablet (Zofran ODT) pantoprazole 40 mg tablet,delayed 40 mg PO QDAY #30 ta bs 11/13/16 release cyclobenzaprine 10 mg tablet 10 mg PO TID PRN muscle s pasm #20 01/09/20 tabs Allergies Allergy/AdvReac Type Severity Reaction Status Date / Time cat dander (CAT DANDER) Allergy Intermediate Itchy, Verified 04/22/25 06:49 watery eyes and sneezing Review of Systems Review of Systems Narrative: General: Denies fever, chills, weight loss HEENT: Denies headache, eye drainage, eye irritation, head trauma, sore throat, voice change Cardiovascular: Positive palpitations Denies any chest pain,tachycardia Respiratory: Denies any shortness of breath, cough, wheeze, stridor GI/: Positive abdominal pain, nausea, vomiting, denies diarrhea, bright red blood per rectum, melanotic stools, urinary frequency, urinary retention, dysuria, hematuria MSK: Denies any joint pain, muscle pains, swelling Skin: Denies any rashes, lesions, discoloration Neuro: Denies any headache, lightheadedness, dizziness, fainting, weakness Psych: Denies SI/HI Patient History Medical History (Updated 04/22/25 @ 08:08 by Abad Watson DO) No significant medical problems alcohol intake frequency: a few times a month Exam Narrative Exam Narrative: General: Cooperative, well-developed, not in acute distress HEENT: Normocephalic, atraumatic, PERRLA, normal sclera, eyelids normal Neck: Active full range of motion, atraumatic Chest: Normal to inspection, negative crepitus, no overlying erythema ecchymosis Respiratory: Normal respiratory effort, not in acute respiratory distress, clear to auscultation bilaterally negative cough, wheeze, tachypnea, rhonchi, rales Cardiology: Regular rate rhythm negative gallop, murmur, rubs GI/: Patient has dry heaving on exam No tenderness to palpation, soft, non rigid, normal to inspection, exam deferred MSK: Full active range of motion in all 4 extremities, atraumatic, no tenderness to palpation of any bony prominences Skin: No rashes or lesions noted Neuro: Alert awake oriented x3, moves all 4 extremities spontaneously, cranial nerves intact, able to answer all questions appropriately follows commands appropriately Psych: Patient anxious, pressured speech Cooperative, negative suicidal or homicidal ideations Initial Vital Signs Initial Vital Signs: Vital Signs Temperature 98 F 04/22/25 06:34 Pulse Rate 75 04/22/25 06:34 Respiratory Rate 16 04/22/25 06:34 Blood Pressure 182/114 H 04/22/25 06:34 Pulse Oximetry 99 04/22/25 06:34 Oxygen Delivery Method Room Air 04/22/25 06:34 Course Orders Ordered: ED Orders 04/22/25 06:34 CBC Auto Diff [Complete Blood Count AUTO DIFF] Stat CMP [Comprehensive Metabolic Panel] Stat 04/22/25 06:35 CXR [XR chest 1V] Stat Lipase Stat MAG [Magnesium] Stat Troponin & CK Cardiac Panel Stat EKG-12 Lead Stat 04/22/25 06:36 TSH w/ Reflex to FT4 Stat 04/22/25 06:40 ETOH [Ethanol (ETOH)] Stat Discontinued Medications Haloperidol (Haloperidol 5 Mg/Ml Vial) 5 mg IV NOW ONE Stop: 04/22/25 06:34 Last Admin: 04/22/25 06:53 Dose: 5 mg Sodium Chloride (Normal Saline 0.9%) 1,000 mls @ 1,000 mls/hr IV BOLUS ONE Stop: 04/22/25 07:32 Last Infusion: 04/22/25 07:23 Dose: Infused Vital Signs Vital signs: Vital Signs - 8 hr 04/22/25 06:34 04/22/25 06:47 Temperature 98 F Pulse Rate 75 63 Respiratory Rate 16 Blood Pressure 182/114 H Pulse Oximetry 99 98 Oxygen Delivery Method Room Air MDM - Abdominal Pain Differential Diagnosis Differential diagnosis: Likely other (Hyperemesis cannabinoid, electrolyte abnormality, pancreatitis, ACS, pneumonia, electrolyte abnormality) Lab Data 04/22/25 06:42 04/22/25 06:42 Labs: Lab Results 04/22/25 Range/Units 06:42 WBC 9.7 (4.5-11.0) X10^3/uL RBC 5.14 (4.5-5.9) X10^6/uL Hgb 15.5 (13.5-17.5) g/dL Hct 44.3 (41-53) % MCV 86.2 (80-100) fL MCH 30.1 (26-34) PG MCHC 34.9 (30-36) % RDW 13.9 (11.6-14.8) % Plt Count 255 (150-400) X10^3/uL Neut % (Auto) 58.3 (50-75) % Lymph % (Auto) 32.7 (25-40) % [place] % (Auto) 7.6 (3-14) % Eos % (Auto) 0.6 L (2-4) % Baso % (Auto) 0.8 (0-2) % Neut # (Auto) 5700 (0476-0237) /uL Lymph # (Auto) 3200 (1124-4574) /uL [place] # (Auto) 700 (0-900) /uL Eos # (Auto) 100 (0-450) /uL Baso # (Auto) 100 (0-100) /uL Sodium 139 (137-145) mmol/L Potassium 3.6 (3.4-5.1) mmol/L Chloride 105 (98-107) mmol/L Carbon Dioxide 24 (22-32) mmol/L BUN 26 H (9-20) mg/dL Creatinine 1.20 (0.66-1.25) mg/dL Estimated GFR > 60 (>60) mL/min BUN/Creatinine Ratio 21.7 (6-22) Glucose 101 H (70-99) mg/dL Calcium 9.9 (8.4-10.2) mg/dL Magnesium 1.9 (1.6-2.3) mg/dL Total Bilirubin 0.6 (0.2-1.3) mg/dL AST 33 (17-59) IU/L ALT 34 (<50) IU/L Alkaline Phosphatase 67 (38-126) U/L Total Creatine Kinase 184 H (55-170) U/L Troponin I < 0.012 (0.01-0.034) ng/mL Total Protein 7.1 (6.3-8.2) g/dL Albumin 4.6 (3.5-5.0) g/dL Globulin 2.5 (1.7-4.1) g/dL Albumin/Globulin Ratio 1.8 (1.0-2.8) Lipase 110 D (23-300) U/L TSH 1.88 (0.47-4.68) uIU/mL Ethyl Alcohol < 10 (<10) mg/dL ECG Data Interpretation: EKG interpreted ED physician sinus 61 beats per minute QTC 410, normal axis, sinus arrhythmia noted, AL QRS interval within normal limits no STEMI MDM Narrative Medical decision making narrative: Patient is a 34-year-old male with a past medical history of alcohol induced pancreatitis, cyclic vomiting, comes into the ED from home for evaluation of palpitations. He states that he woke up started feeling palpitations, states that these palpitations then started causing him to feel nauseous and feel like needing to vomit. He states that these symptoms started to escalate and started having some mild abdominal pain in the in which he states that he feels the same symptoms of when he was seen here previously. He states that he was seen by a primary care doctor yesterday and was started on ?some antianxiety medication states that he felt like this did not help therefore came into the ED for further evaluation treatment. Upon initial evaluation patient dry heaving on exam. Patient anxious with a pressured speech, he is just complaining of persistent palpitations and nausea. Review of records does show that patient was seen here on 04/20/2025, had lab work imaging urinalysis performed. Patient at that time on 04/20/2025 with only mild leukocytosis of 12.1, Chem panel otherwise unremarkable. Patient's CT scan did not show any acute findings. Patient was discharged home with pantoprazole, Zofran and cyclobenzaprine for her symptoms. Patient did have positive THC in his urine at that time as well. However patient states that he has not been smoking or using any marijuana. Denies any alcohol use. 0807: I was informed by nursing staff that the patient got up and stated that he did not want to wait for me to re-evaluate him, he states that he has ?never coming back to this hospital. Patient's lab work did show improvement of his leukocytosis from 2 days ago, 9.7 from 12.1, Chem panel was also unremarkable, EKG was nonischemic, troponin negative, lipase was 110 which was improved from 2 days ago at 339. Discharge Plan Departure Patient Disposition: Elopement Clinical Impression: Eloped from emergency department Prescriptions: No Action pantoprazole 40 MG tablet,delayed release (DR/EC) 40 mg PO QDAY Qty: 30 0RF ondansetron [Zofran ODT] 4 MG tablet,disintegrating 4 mg Sublingual Q6HP PRNQty: 5 0RF cyclobenzaprine 10 mg tablet 10 mg PO TID PRN (Reason: muscle spasm) Qty: 20 0RF
[2025-04-22 06:34] VITALS: BP 182/114; PULSE 75; RESP 16; TEMP 36.6; O2SAT 99; BMI 15.8
--- NOTE | 2025-04-22 06:35 | DI.RAD.S_ITS ---
PROCEDURE: XR CHEST 1V INDICATIONS: palpitations TECHNIQUE: One view of the chest was acquired. COMPARISON: None. FINDINGS: Surgical changes and devices: None. Lungs and pleura: Lungs are clear. No pleural effusions or pneumothorax. Mediastinum: Mediastinal contours appear normal. Heart size is normal. Bones and chest wall: No suspicious bony lesions. Overlying soft tissues appear unremarkable. IMPRESSION: No acute cardiopulmonary abnormality is seen. Dictated by: Ke Joseph M.D. on 04/22/2025 at 9:04 Approved by: Ke Joseph M.D. on 04/22/2025 at 9:05
--- NOTE | 2025-04-22 06:35 | EKG_ITS ---
[place] [id number] [address] [place] [id number] Test Date: 2025-04-22 Pat Name: Yehuda Chau Department: [facility] Room: Gender: Male Bible Teacher: FIDELIA : 1990 Requested By: Order Number: [id number] Reading MD: Getachew Ruiz Measurements Intervals [place] Rate: 61 P: 43 RI: 150 QRS: 27 QRSD: 100 T: 40 QT: 408 QTc: 410 Interpretive Statements Sinus rhythm with marked sinus arrhythmia Electronically Signed On 05-07-2025 8:06:04 PDT by Getachew Ruiz
[2025-04-22 06:47] VITALS: PULSE 63; O2SAT 98
[2025-04-22 06:50] LABS: Add Manual Diff / Slide Review NO; Hematocrit 44.3 % (41-53); Hemoglobin 15.5 g/dL (13.5-17.5); Lymphocytes Absolute Auto 3200 /uL (1100-4500); Mean Corpuscular HGB Conc 34.9 % (30-36); Mean Corpuscular Hemoglobin 30.1 PG (26-34); Mean Corpuscular Volume 86.2 fL (80-100); Platelet Count 255 X10^3/uL (150-400)
[2025-04-22] MEDS: HALOPERIDOL 5 MG/ML VIAL IV (06:53)
[2025-04-22] MEDS: SODIUM CHLORIDE 0.9% 1,000 ML 1000 ML IV (06:53)
[2025-04-22 07:01] LABS: Ethanol (ETOH) < 10 mg/dL (<10)
[2025-04-22 07:02] LABS: Alanine Aminotransferase 34 IU/L (<50); Albumin 4.6 g/dL (3.5-5.0); Albumin Globulin Ratio 1.8 (1.0-2.8); Alkaline Phosphatase 67 U/L (38-126); Blood Urea Nitrogen 26 mg/dL (9-20); Calcium 9.9 mg/dL (8.4-10.2); Carbon Dioxide 24 mmol/L (22-32); Chloride 105 mmol/L (98-107); Creatine Kinase 184 U/L (55-170); Estimated Glomerular Filt Rate > 60 mL/min (>60); Globulin 2.5 g/dL (1.7-4.1); Glucose 101 mg/dL (70-99); HEMOLYSIS < 15 (0-50); Lipase 110 U/L (23-300); Magnesium 1.9 mg/dL (1.6-2.3); Potassium 3.6 mmol/L (3.4-5.1); Sodium 139 mmol/L (137-145); Total Protein 7.1 g/dL (6.3-8.2)
[2025-04-22 07:14] LABS: Troponin I < 0.012 ng/mL (0.01-0.034)
--- NOTE | 2025-04-22 07:21 | PC.NURSE ---
Pt yelling in room, groaning loudly. Denies needing anything when asked. being verbally aggressive to staff. pulling at attached monitoring and IV line. reports he wants to leave. IV removed. Pt ambulated out of ED with steady gait to mom in waiting room.
[2025-04-22 07:44] LABS: TSH w/ Reflex to FT4 1.88 uIU/mL (0.47-4.68)
== END 2025-04-22 07:20 | disposition left against medical advice (07) ==
PROVIDERS: Emergency Provider Student in an Organized Health Care Education/Training Program
DX: R00.2 Palpitations (principal); R11.2 Nausea with vomiting, unspecified; R10.9 Unspecified abdominal pain; F41.0 Panic disorder [episodic paroxysmal anxiety]; Z53.21 Procedure and treatment not carried out due to patient leaving prior to being seen by health care provider
CPT/HCPCS: 36415; 71045; 80053; 80320; 82550; 83690; 83735; 84443; 84484; 85025; 93005; 96374; 99284; J1630